=== PATIENT | male | born 1945 | race Caucasian/White ===

== ENCOUNTER 2017-07-13 17:48 | Emergency (ER) | payer MEDICARE, BC ==
[2017-07-13] MEDS ORDERED: Sodium Chloride 0.9% 10 ML Syringe FLUSH PRN (18:34)
[2017-07-13] MEDS ORDERED: Labetalol 100 MG/20 ML MDV IVPUSH ONE (18:35)
[2017-07-13] MEDS ORDERED: cloNIDine 0.1 MG Tab PO ONE (18:35)
[2017-07-13] MEDS ORDERED: amLODIPine 10 MG Tab PO ONE (18:36)
--- NOTE | 2017-07-13 19:05 | EDM.PDOC ---
ED HPI GENERAL MEDICAL PROBLEM - General Chief Complaint: Cardiovascular Problem Stated Complaint: HIGH BP Time Seen by Provider: 07/13/17 18:22 Source of Information: Reports: Patient History Limitations: Reports: No Limitations - History of Present Illness INITIAL COMMENTS - FREE TEXT/NARRATIVE: Patient is a 71 y/o male who presents to the E.D. due to elevated blood pressure. Patient was evaluated by his primary care provider at the [place] [facility] yesterday. Due to elevated blood pressures and abnormal EKG with Q waves in V1 and V2 he was referred to [facility] to arrange appointment with cardiology. Patient was evaluated by Dr. Abdi and was found to have elevated BP to high to safely send home. Patient has been receiving his medications from the [place] [facility]. Patient's supposed to be on amlodipine, HCTZ, losartan, metoprolol and also simvastatin. Patient states he ran out of all his medications except for the metoprolol approximate 2 months ago. Losartan and HCTz were recently restarted. However he will not receive these medications for about one week. Patient denies any chest pain, shortness of breath, dizziness, PND, orthopnea, increased weight, swelling to his lower extremities, headache, vision changes, or any additional complaints. He does have a history of dementia and thus is a poor historian. In addition has history of COPD. Patient has been taking aspirin 325 mg every day along with metoprolol 50 mg 2 times a day. Patient was on amlodipine 5 mg once a day, losartan 100 mg one tab once a day, and HCTZ 12.5 milligrams twice a day. - Related Data Allergies Allergy/AdvReac Type Severity Reaction Status Date / Time No Known Allergies Allergy Verified 08/12/15 13:35 Home Meds: Home Meds Albuterol [Ventolin HFA] 2 puff INH Q6H PRN #1 inhaler 08/12/15 [Rx] Budesonide/Formoterol [Symbicort 160-4.5 MCG] 1 puff INH BID 08/12/15 [History] Lutein/Minerals/Vit A,C & E [Ocuvite] 1 tab PO DAILY 08/12/15 [History] Simvastatin [Zocor] 80 mg PO BEDTIME 08/12/15 [History] Aspirin [Ecotrin] 325 mg PO DAILY 07/13/17 [History] Cholecalciferol (Vitamin D3) [Vitamin D3] 2,000 unit PO DAILY 07/13/17 [History] Hydroclorathiazide 12.5 mg PO DAILY #14 07/13/17 [Rx] Losartan [Cozaar] 100 mg PO DAILY #14 tablet 07/13/17 [Rx] Metoprolol Tartrate 50 mg PO BID 07/13/17 [History] Multivitamin [Multivitamins] 1 cap PO DAILY 07/13/17 [History] amLODIPine [Norvasc] 5 mg PO DAILY #14 tablet 07/13/17 [Rx] Past Medical History HEENT History: Reports: Hard of Hearing, Impaired Vision Other HEENT History: Impaired Hearing with hearing aids Cardiovascular History: Reports: Hypertension Respiratory History: Reports: COPD, SOB Endocrine/Metabolic History: Reports: Diabetes, Type II Social & Family History - Tobacco Use Smoking Status *Q: Former Smoker Years of Tobacco use: 15 Packs/Tins Daily: 1 Used Tobacco, but Quit: Yes Month Tobacco Last Used: 8 yrs - Caffeine Use Caffeine Use: Reports: Coffee - Recreational Drug Use Recreational Drug Use: No ED ROS GENERAL - Review of Systems Review Of Systems: ROS reveals no pertinent complaints other than HPI. ED EXAM, GENERAL - Physical Exam Exam: See Below Exam Limited By: No Limitations General Appearance: Alert, WD/WN, No Apparent Distress Ears: Hearing Grossly Normal Nose: Normal Inspection Throat/Mouth: Normal Voice, No Airway Compromise Neck: Normal Inspection, Supple, Non-Tender, Full Range of Motion. No: Carotid Bruit Respiratory/Chest: No Respiratory Distress, Lungs Clear, Normal Breath Sounds, No Accessory Muscle Use, Chest Non-Tender Cardiovascular: Normal Peripheral Pulses, Regular Rate, Rhythm, No Murmur Peripheral Pulses: 2+: Radial (L), Radial (R) Extremities: Normal Inspection, Normal Range of Motion, Non-Tender, No Pedal Edema, Normal Capillary Refill Neurological: Alert, Oriented, CN II-XII Intact, Normal Cognition, No Motor/ Sensory Deficits Psychiatric: Normal Affect, Normal Mood Skin Exam: Warm, Dry, Intact, Normal Color Course - Vital Signs Last Recorded V/S: Last Vital Signs Temp 97.7 F 07/13/17 18:17 Pulse 85 07/13/17 18:58 Resp 22 H 07/13/17 18:17 BP 207/131 H 07/13/17 19:04 Pulse Ox 96 07/13/17 18:17 - Orders/Labs/Meds Orders: Active Orders 24 hr Category Date Time Status EKG 12 Lead [EKG Documentation Completion] [RC] STAT Care 07/13/17 20:15 Active EKG Documentation Completion [RC] STAT Care 07/13/17 18:34 Active Peripheral IV Care [RC] . DIRECTED Care 07/13/17 18:34 Active Chest 1V Frontal [CR] Stat Exams 07/13/17 18:34 Taken Peripheral IV Insertion Adult [OM.PC] Stat Oth 07/13/17 18:34 Ordered Labs: Laboratory Tests 07/13/17 07/13/17 07/13/17 Range/Units 19:00 19:00 19:20 WBC 7.71 (4.23-9.07) K/mm3 RBC 5.48 (4.63-6.08) M/mm3 Hgb 16.4 (13.7-17.5) gm/L Hct 51.1 H (40.1-51.0) % MCV 93.2 H (79.0-92.2) fl MCH 29.9 (25.7-32.2) pg MCHC 32.1 L (32.2-35.5) g/dl RDW Std Deviation 45.5 H (35.1-43.9) fL Plt Count 209 (163-337) K/mm3 MPV 10.8 (9.4-12.3) fl Neut % (Auto) 76.1 H (34.0-67.9) % Lymph % (Auto) 14.9 L (21.8-53.1) % [place] % (Auto) 7.3 (5.3-12.2) % Eos % (Auto) 1.2 (0.8-7.0) Baso % (Auto) 0.1 (0.1-1.2) % Neut # (Auto) 5.87 H (1.78-5.38) K/mm3 Lymph # (Auto) 1.15 L (1.32-3.57) K/mm3 [place] # (Auto) 0.56 (0.30-0.82) K/mm3 Eos # (Auto) 0.09 (0.04-0.54) K/mm3 Baso # (Auto) 0.01 (0.01-0.08) K/mm3 Sodium 143 (136-145) mEq/L Potassium 3.9 (3.5-5.1) mEq/L Chloride 106 (98-107) mEq/L Carbon Dioxide 32 (21-32) mEq/L Anion Gap 8.9 (5-15) BUN 15 (7-18) mg/dL Creatinine 0.9 (0.7-1.3) mg/dL Est Cr Clr Drug Dosing 64.54 mL/min Estimated GFR (MDRD) > 60 (>60) mL/min BUN/Creatinine Ratio 16.7 (14-18) Glucose 109 (83-115) mg/dL Calcium 9.4 (8.5-10.1) mg/dL Total Bilirubin 0.4 (0.2-1.0) mg/dL AST 22 (15-37) U/L ALT 31 (16-63) U/L Alkaline Phosphatase 89 (46-116) U/L Total Protein 7.4 (6.4-8.2) g/dl Albumin 4.2 (3.4-5.0) g/dl Globulin 3.2 gm/dL Albumin/Globulin Ratio 1.3 (1-2) Urine Color Yellow (Yellow) Urine Appearance Clear (Clear) Urine pH 7.5 (5.0-8.0) Ur Specific [place] 1.020 (1.005-1.030) Urine Protein Negative (Negative) Urine Glucose (UA) Negative (Negative) Urine Ketones Negative (Negative) Urine Occult Blood Negative (Negative) Urine Nitrite Negative (Negative) Urine Bilirubin Negative (Negative) Urine Urobilinogen 0.2 (0.2-1.0) Ur Leukocyte Esterase Negative (Negative) Urine RBC 0-5 (0-5) /hpf Urine WBC 0-5 (0-5) /hpf Ur Epithelial Cells 0-5 (0-5) /hpf Urine Bacteria Occasional (FEW) /hpf Urine Mucus Not seen (FEW) /hpf Meds: Medications Discontinued Medications Generic Name Dose Route Start Last Admin Trade Name Freq PRN Reason Stop Dose Admin Amlodipine Besylate 10 mg 07/13/17 18:36 07/13/17 19:04 Norvasc PO 07/13/17 18:37 10 mg ONETIME ONE Administration Clonidine HCl 0.1 mg 07/13/17 18:35 07/13/17 19:04 Catapres PO 07/13/17 18:36 0.1 mg ONETIME ONE Administration Labetalol HCl 20 mg 07/13/17 18:35 07/13/17 18:58 Normodyne IVPUSH 07/13/17 18:36 20 mg ONETIME ONE Administration Protocol Sodium Chloride 10 ml 07/13/17 18:34 07/13/17 19:05 Saline Flush FLUSH 10 ml ASDIRECTED PRN Administration Keep Vein Open - Re-Assessments/Exams Free Text/Narrative Re-Assessment/Exam: Current blood pressure on examination was 211/110 with a heart rate of 75. Patient is asymptomatic. IV will be established with labetalol 20 mg IV, Norvasc 10mg po and amlodipine 0.1 mg by mouth. Basic labs and studies include : CBC, chem 14, EKG, chest x-ray, and UA. EKG sinus rhythm at a rate of 74, early R-wave transition, right bundle branch block pattern, left axis deviation 61, near Q waves in leads 2, 3, aVF consider old inferior wall PR. QT mildly prolonged. 07/13/17 19:28 1928 reexamination blood pressure 185/122. 07/13/17 19:40 Reassessment, BP 172/89 HR 72. Patient remains asymptomatic. 07/13/17 19:51 Chest x-ray by by his other atelectasis with emphysematous changes. Mild increased lung marking which are likely chronic. 07/13/17 19:54 Recheck blood pressure 138/88. Patient is a symptomatic. 07/13/172009 Nursing has brought to my attention patient is having PVC's since having the above medications. Asked for new EKG. BP was 142/99 with a heart rate of 93. EKG sinus rhythm at a rate of 80 with multiple unifocal PVCs. Labs reviewed: CBC, chem 14, and UA essentially normal. 2024 Patient reassessment, patient is asymptomatic. Vital signs stable. PVC's are not perfusing. Believe PVCs are as a result of the medications were given above. Discussed patient with Dr. Navarrete. Believes PVC's will self resolve. Suggested getting the patient up and walking see how he tolerates the PVCs. 2042 Per nursing staff patient has ambulated around the ER with no complaints. Will discharge patients home with instructions as documented. Departure - Departure Time of Disposition: 20:46 Disposition: Home, Self-Care 01 Condition: Good Clinical Impression: Asymptomatic PVCs Hypertension Qualifiers: Hypertension type: unspecified Qualified Code(s): I10 - Essential (primary) hypertension Prescriptions: amLODIPine [Norvasc] 5 mg PO DAILY #14 tablet Hydroclorathiazide 12.5 mg PO DAILY #14 Losartan [Cozaar] 100 mg PO DAILY #14 tablet Instructions: Premature Ventricular Contraction, Hypertension Referrals: Brian Abdi MD [Primary Care Provider] - Forms: ED Department Discharge Additional Instructions: Please follow up with Dr. Abdi for echocardiogram and stress test. Upon admission to the ED her blood pressure is quite elevated. We were able to bring it down with labetalol, Norvasc, and clonidine. Blood pressure trended downward quite nicely developing some non-perfusing asymptomatic PVCs that should self resolve. Since your medications that are required to treat your high blood pressure are not going to be available for additional week I have provided a 2 week prescription for amlodipine, HCTZ, and losartan. Please fill these medications this evening and take her metoprolol this evening as prescribed. Take all medications as prescribed. Follow-up with your primary care provider this Monday for reevaluation. Return to the ED if you develop any new or worsening symptoms. - My Orders Last 24 Hours: My Active Orders 07/13/17 18:34 EKG Documentation Completion [RC] STAT Peripheral IV Care [RC] . DIRECTED Chest 1V Frontal [CR] Stat Peripheral IV Insertion Adult [OM.PC] Stat 07/13/17 20:15 EKG 12 Lead [EKG Documentation Completion] [RC] STAT - Assessment/Plan Last 24 Hours: My Active Orders 07/13/17 18:34 EKG Documentation Completion [RC] STAT Peripheral IV Care [RC] . DIRECTED Chest 1V Frontal [CR] Stat Peripheral IV Insertion Adult [OM.PC] Stat 07/13/17 20:15 EKG 12 Lead [EKG Documentation Completion] [RC] STAT
[2017-07-13 19:10] VITALS: BP 207/131
--- NOTE | 2017-07-14 07:10 | CR ---
Chest: Portable view of the chest was obtained. Comparison: Prior chest x-ray 08/12/15. Heart size is normal. Tortuous thoracic aorta is seen. Mild scarring is seen within the right lung base. No acute infiltrates are seen. Lungs are hyperinflated compatible with emphysematous change. Bony structures appear within normal limits for the patient's age. Impression: 1. Emphysematous change. 2. Scarring within the right lung base which is stable from prior exam. 3. Nothing acute is appreciated. Diagnostic code #2
== END 2017-07-13 21:00 | disposition home or self-care (01) ==
LOC: JD.ED 17:48
DX: I10 Essential (primary) hypertension (principal); I49.3 Ventricular premature depolarization; J44.9 Chronic obstructive pulmonary disease, unspecified; E11.9 Type 2 diabetes mellitus without complications; Z79.82 Long term (current) use of aspirin; Z79.899 Other long term (current) drug therapy
CPT/HCPCS: 36415; 71010; 80053; 81001; 85025; 93005; 99284; A9270; J7050; 93010; 96374; 99285

== ENCOUNTER 2024-02-15 09:47 | Day surgery (SDC) | payer MEDICARE, OTHER ==
[2024-02-15] MEDS: Polymyxin B/Trimethoprim 10 ML Bottle EYELF SCH (10:14)
[2024-02-15] MEDS: Brimonidine 0.2% Ophth Soln 5 ML Bottle EYELF SCH (10:19)
[2024-02-15] MEDS: Phenylephrine 2.5% Ophth Soln 2 ML Bot EYELF SCH (10:23)
[2024-02-15] MEDS: Tropicamide 1% Ophth Soln 3 ML Bottle EYELF SCH (10:32)
[2024-02-15] MEDS: Tetracaine HCl/PF 0.5% 4 ML Bottle EYEBOTH SCH (11:04)
[2024-02-15] MEDS: Lidocaine 1% PF 2 ML SDV INJECT SCH (11:56)
[2024-02-15] MEDS: Cefuroxime 10 MG/ML SYRINGE EYELF SCH (12:00)
[2024-02-15] MEDS: Pilocarpine 4% Ophth Soln 15 ML Bot EYELF SCH (12:12)
[2024-02-15 12:50] VITALS: BP 159/85; PULSE 75
== END 2024-02-15 12:27 | disposition home or self-care (01) ==
LOC: JD.SDS 09:47
PROVIDERS: ATTEND Ophthalmology
DX: E11.36 Type 2 diabetes mellitus with diabetic cataract (principal); H21.41 Pupillary membranes, right eye; H21.81 Floppy iris syndrome; H25.813 Combined forms of age-related cataract, bilateral; H35.312 Nonexudative age-related macular degeneration, left eye; H35.3112 Nonexudative age-related macular degeneration, right eye, intermediate dry stage; H35.363 Drusen (degenerative) of macula, bilateral; H02.831 Dermatochalasis of right upper eyelid; H02.834 Dermatochalasis of left upper eyelid; H35.372 Puckering of macula, left eye; H35.342 Macular cyst, hole, or pseudohole, left eye; I10 Essential (primary) hypertension; E78.2 Mixed hyperlipidemia; J44.9 Chronic obstructive pulmonary disease, unspecified; Z87.891 Personal history of nicotine dependence; Z79.82 Long term (current) use of aspirin; Z79.899 Other long term (current) drug therapy
CPT/HCPCS: 66982; A9270; J0697; J3490

== ENCOUNTER 2024-03-21 09:05 | Day surgery (SDC) | payer OTHER, MEDICARE ==
[2024-03-21] MEDS: Albuterol 0.083% 2.5 MG/3 ML Neb Soln NEB ONE (10:43)
[2024-03-21] MEDS: Polymyxin B/Trimethoprim 10 ML Bottle EYELF SCH (10:44)
[2024-03-21] MEDS: Brimonidine 0.2% Ophth Soln 5 ML Bottle EYELF SCH (10:46)
[2024-03-21] MEDS: Phenylephrine 2.5% Ophth Soln 2 ML Bot EYELF SCH (10:47)
[2024-03-21] MEDS: Tropicamide 1% Ophth Soln 3 ML Bottle EYELF SCH (10:48)
[2024-03-21] MEDS: Tetracaine HCl/PF 0.5% 4 ML Bottle EYEBOTH SCH (11:17)
[2024-03-21] MEDS: Lidocaine 1% PF 2 ML SDV INJECT SCH (11:41)
[2024-03-21] MEDS: Cefuroxime 10 MG/ML SYRINGE EYELF SCH (12:00)
[2024-03-21] MEDS: Pilocarpine 4% Ophth Soln 15 ML Bot EYELF SCH (12:00)
[2024-03-21 12:17] VITALS: BP 167/91; PULSE 84
== END 2024-03-21 12:10 | disposition home or self-care (01) ==
LOC: JD.SDS 09:05
PROVIDERS: ATTEND Ophthalmology
DX: E11.36 Type 2 diabetes mellitus with diabetic cataract (principal); H25.812 Combined forms of age-related cataract, left eye; H21.81 Floppy iris syndrome; H21.42 Pupillary membranes, left eye; I10 Essential (primary) hypertension; E78.2 Mixed hyperlipidemia; J44.9 Chronic obstructive pulmonary disease, unspecified; Z87.891 Personal history of nicotine dependence; Z79.899 Other long term (current) drug therapy
CPT/HCPCS: 66982; A9270; J0697; J3490; J7620-GY